=== PATIENT | male | born 1955 | race Caucasian/White ===

== ENCOUNTER 2017-05-27 11:48 | Day surgery (SDC) | payer OTHER ==
[~2017-05-27] VITALS: Ht 170.2 cm; Wt 87.3 kg
[~2017-05-27 11:48] MED LIST: BUPR-86 PO; CEPH500C3 PO; METO25 PO; PROS5TAB2 PO; TAMS0.4C67 PO
[2017-05-27] MEDS ORDERED: DEXAMETHASONE SOD PHOS 4 MG/ML VIAL IV ONE (12:00)
[2017-05-27] MEDS ORDERED: ROCURONIUM INJ 50 MG/5 ML SYRINGE IV PUSH ONE (12:00)
[2017-05-27] MEDS ORDERED: ONDANSETRON HCL 4 MG/2 ML VIAL IV PUSH ONE (12:00)
[2017-05-27] MEDS ORDERED: LIDOCAINE HCL 1% PF 5 ML AMPULE OTHER ONE (12:00)
[2017-05-27] MEDS ORDERED: PROPOFOL 200 MG/20 ML AMP IV ONE (12:00)
[2017-05-27] MEDS ORDERED: ePHEDrine/NS 25 MG/5 ML SYR IV ONE (12:00)
[2017-05-27] MEDS ORDERED: FLEC1TAB8 PO (13:16)
[2017-05-27] MEDS ORDERED: ASPI81CH37 CHEW (13:16)
[2017-05-27] MEDS ORDERED: ATOR20TA15 PO (13:16)
[2017-05-27] MEDS ORDERED: APIX5TAB PO (13:16)
[2017-05-27 13:17] VITALS: BP 126/75; PULSE 82; RESP 18; TEMP 98.3; O2SAT 96
[2017-05-27 13:19] LABS: AUTOMATED NEUTROPHIL # 4.7 TH/MM3 (1.8-7.7); BASOPHIL % 0.3 % (0.0-2.0); EOSINOPHIL # 0.1 TH/MM3 (0-0.4); EOSINOPHIL % 1.6 % (0.0-4.0); HEMO FLAGS DIFF FINAL; LYMPH % 35.1 % (9.0-44.0); LYMPHOCYTE # 2.9 TH/MM3 (1.0-4.8); MEAN CELL VOLUME 91.2 FL (80.0-100.0); MEAN CORPUSCULAR HEMOGLOBIN 30.4 PG (27.0-34.0); MEAN CORPUSCULAR HGB CONC 33.4 % (32.0-36.0); MONO % 6.3 % (0.0-8.0); NEUT % 56.7 % (16.0-70.0); PLATELET COUNT 148 TH/MM3 (150-450); RED BLOOD COUNT 4.93 MIL/MM3 (4.50-5.90); RED CELL DISTRIBUTION WIDTH 13.7 % (11.6-17.2); WHITE BLOOD COUNT 8.2 TH/MM3 (4.0-11.0)
[2017-05-27 13:27] LABS: APTT (PATIENT) 26.1 SEC (24.3-30.1); PROTHROMBIN TIME - PATIENT 10.5 SEC (9.8-11.6)
[2017-05-27 13:39] LABS: BICARBONATE 29.2 MEQ/L (21.0-32.0); POTASSIUM 3.8 MEQ/L (3.5-5.1)
[2017-05-27] MEDS ORDERED: LACTATED RINGER'S 1000 ML IV PRN (14:00)
[2017-05-27] MEDS ORDERED: METOPROLOL TARTRATE 25 MG TAB PO PRN (14:00)
[2017-05-27] MEDS ORDERED: POVIDONE IODINE 5% (ANTISEPSIS KIT) 4 APPLICATIONS EACH NARE PRN (14:00)
[2017-05-27] MEDS ORDERED: SODIUM CHLORID 0.9% 500 ML INJ 500 ML IV SCH (14:00)
[2017-05-27] MEDS ORDERED: LORazepam 1 MG TAB SL SCH (14:00)
[2017-05-27] MEDS ORDERED: SODIUM CHLORID 0.9% 500 ML IV PRN (14:00)
[2017-05-27] MEDS ORDERED: CHLORHEXIDINE GLUCONATE 2 % 1 PACK (2 CLOTHS) TOPICAL PRN (14:00)
[2017-05-27] MEDS ORDERED: INSULIN HUMAN REGULAR 1,000 UNITS/10 ML VIAL SQ PRN (14:00)
[2017-05-27] MEDS ORDERED: HEPARIN-NS/PF INJ 1,500 ML ONE (14:43)
[2017-05-27] MEDS ORDERED: LEVOFLOXACIN 500 MG PREMIX INJ 100 ML IV ONE (14:43)
[2017-05-27] MEDS ORDERED: HEPARIN SODIUM - IV 10,000 UNITS/10 ML VIAL ONE (15:04)
[2017-05-27] MEDS ORDERED: PROTAMINE SULFATE 50 MG/5 ML VIAL ONE (15:04)
[2017-05-27] MEDS ORDERED: ISOPROTERENOL HCL 1 MG/5 ML AMP ONE (15:04)
[2017-05-27] MEDS ORDERED: HEPARIN-D5W 25,000 U/250 ML 250 ML ONE (15:04)
--- NOTE | 2017-05-27 16:02 | EKG ---
Date Performed: 05/27/2017 Time Performed: 13:30:34 PTAGE: 61 years EKG: Sinus bradycardia with sinus arrhythmia. Non-specific ST/T wave changes Baseline artifact PREVIOUS TRACING : 05/15/2015 15.23 Compared to prior tracing no significant change DOCTOR: Trevon Porras Interpretating Date/Time 05/27/2017 16:02:36
[2017-05-27] MEDS ORDERED: FUROSEMIDE 40 MG/4 ML VIAL ONE (17:11)
[2017-05-27] MEDS ORDERED: BACITRACIN OINT 0.9 GM PKT TOP ONE (17:15)
[2017-05-27] MEDS ORDERED: ONDANSETRON HCL 4 MG/2 ML VIAL IV PUSH PRN (17:15)
[2017-05-27] MEDS ORDERED: SODIUM CHLOR 0.9% 250 ML INJ 250 ML IV PRN (17:15)
[2017-05-27] MEDS ORDERED: oxyCODONE/ACETAMINOPHEN 5 MG/325 MG TAB PO PRN ×2 (17:15)
[2017-05-27] MEDS ORDERED: LORazepam 2 MG/ML VIAL IV PUSH PRN (17:15)
[2017-05-27] MEDS ORDERED: ATROPINE SULFATE 1 MG/ML VIAL IV PUSH PRN (17:15)
[2017-05-27] MEDS ORDERED: LIDOCAINE HCL 1% 50 ML VIAL INFIL PRN (17:15)
[2017-05-27] MEDS ORDERED: METOCLOPRAMIDE HCL 10 MG/2 ML VIAL IV PUSH PRN (17:15)
--- NOTE | 2017-05-27 17:23 | PD.CARD ---
Atrial Fibrillation Ablation PROCEDURE DATE: May 27, 2017 PROCEDURES PERFORMED: 1. Electrophysiology study on Isuprel infusion 2. CS cannulation 3. 3-D mapping 4. Transseptal approach 5. Right and left heart catheterization 6. Intracardiac echo 7. Radiofrequency ablation of atrial fibrillation 8. Pulmonary vein isolation 9. Posterior wall ablation 10. Mitral line creation 11. Anterior wall ablation INDICATIONS FOR THE PROCEDURE Mr. Cancino is a 61-year-old male with atrial fibrillation, symptomatic, on anticoagulation, referred for electrophysiology study and ablation. The risks, the nature and the benefits of the procedure were clearly stated to him. The risks include pneumothorax, cardiac perforation, stroke, need for open heart surgery and even . The patient understood and agreed to proceed. DESCRIPTION OF THE PROCEDURE IN DETAIL As written informed consent was obtained prior to esophageal echocardiogram, the patient was kept on the table where he was prepped and draped in the usual sterile fashion. Conscious sedation was initiated and maintained throughout the procedure by the anesthesiologist. Once sedation was verified, the right and left inguinal areas were anesthetized with 2% Xylocaine. Using modified Seldinger technique, the left femoral vein was cannulated on three occasions, three guidewires were advanced. Over the wire a 6, 7 and a 10-Montserratian Hemaquet were advanced. Then the left femoral artery was cannulated on one occasion, one guidewire was advanced. Over the wire a 4-Montserratian Hemaquet was advanced. Then the right femoral vein was cannulated on one occasion, one guidewire was advanced. Over the wire a 8-Montserratian Hemaquet was advanced. Then under fluoroscopic guidance through the 6 and 7-Montserratian Hemaquet, two 5-Montserratian Nicolas curved quadripolar electrophysiology catheters were advanced and placed around the His as well as coronary sinus. Basic interval was measured. The patient was in sinus. Through the 10-Montserratian Hemaquet, a Cordis Blackwood AcuNav intracardiac echo catheter was advanced and placed at the right atrium. Multiple view was obtained. There was no pericardial effusion, pulmonary vein was seen, atrial septal was visualized. Then the 8-Montserratian Hemaquet in the right femoral vein was exchanged for Agilis transseptal sheath that was placed all the way to the superior vena cava. Through the sheath a Paola needle was advanced, then the sheath, the dilator and the needle were progressed until foci engaged. Once engaged, the needle was advanced. RF was delivered for 2 seconds. I was able to cross into the left atrium. Once the needle crossed, the dilator was advanced. Once the dilator crossed, the sheath was advanced. Once the sheath crossed, the dilator and the needle were removed. At this point I did flood the system and fluid movement was seen in the left atrium the indicates the sheath is in good position. The patient already received 10,000 units of heparin. The goal is to keep an ACT around 350 during ablation. Then through the sheath a [place]. [place]ce 20 pulse circumferential catheter was advanced. Using [employer] endocardial solution mapping system, a two-dimensional configuration of the left atrium was obtained. Points were taken at the left superior and inferior veins, right superior and inferior veins, mitral valve, and appendages. Then through the sheath a [place]. Jayce TactiCath 65cm 3.5mm irrigated tipped mapping and radiofrequency ablation catheter was advanced. Esophageal probe was placed temperature monitoring during ablation. When it increased to 0.5 degrees Celsius above baseline, I moved to a different area of the atrium. First I did isolate the left superior and inferior vein. I did make a [place]ter [place] around the veins. Posterior was ablated. Then a mitral line was created. Then the right superior and inferior veins were isolated. A potter valley was made around both veins. I did remap the atrium. At that point I did advance the circumferential catheter again into the vein. There was no signal into the vein , pacing from the vein showed no conduction to the atrium. Isuprel infusion was initiated at 20 mcg for over 10 minutes. No tachyarrhythmia was induced, post Isuprel no tachyarrhythmia was induced. At that point the procedure was complete. All catheters were removed, atrial septal sheath was exchanged for 9- Montserratian Hemaquet, intracardiac echo showed no pericardial effusion. There is still good flow in the pulmonary vein. The patient is going to be transferred to the recovery room. No incident report. The patient tolerated the procedure. Blood loss was minimal. FINDINGS 1. Electrocardiogram: At baseline the patient was in sinus rhythm. Post procedure electrocardiogram was unchanged. 2. Basic interval: Base cycle length was around 840. AH at 70 and HV at 60 milliseconds. 3. Tachyarrhythmia: Atrial fibrillation was mapped and ablated. The ablation was successful. CONCLUSION Successful electrophysiology study, mapping, radiofrequency ablation of atrial fibrillation, pulmonary vein isolation, posterior ablation, mitral line creation. COMMENTS AND RECOMMENDATIONS The patient is going to be transferred to the telemetry unit. Will be observed and when stable can be discharged home. Nelson Ellis MD May 27, 2017 17:23
--- NOTE | 2017-05-27 17:27 | CATHPROC ---
[facility] HIS Report Study Information Study Number Admission Scheduled Start Study Start [id number] May 27 2017 11:48AM 05/27/2017 May 27 2017 2:13PM Hanna Service Electrophysiology Study Admit Source Facility Department Other [facility] Worker Physician and Clinical Staff Initial Nelson Joy Web Press Jogger Trudy Gilman,JAVA DESIGNER Web Press Jogger Alberto Moody,RT(R) Other Anesthesia, ELECTRIC METER TECHNICIAN Recorder Rylie Clark,RN Recorder Kendy Maynard RN Scrub Trudy Gilman,JOCELYN Scrub Sabiha Delgado,STREETS AND BUILDINGS DECORATOR TECH2 Procedures Performed Procedure Location (Site) Vessel Name Ablation Procedure ICE CATHETER INSERT RA Atruim RF Ablation LT. ATRIUM LT. [facility] Equipment Time [facility] Former Description Size Mfg Part Number Used/Scraped NEEDLE, TRANSSEPTAL NRG 98 14:30 [facility] [id number] Used C1 [employer]/ EP 14:30 KIT, TRANSDUCER / AFIB [id number] Used PACER [id number] CATHETER, TACTICATH ABLAT BUNDLE 14:30 BUNDLE-[facility]EL Used 65 BUNDLE *[id number] BUNDLE [id number] CATHETER, FR7 OPTIMA SPIRAL 14:30 BUNDLE-[employer] IS[employer]EL FR7 *[id number] Used BUNDLE BUNDLE [id number] 14:30 BUNDLE-[employer]EL CATHETER, JSN, QUAD BUNDLE FR 5 *[id number] Used BUNDLE [id number] 14:30 BUNDLE-[employer] CATHETER, JSN, QUAD BUNDLE FR 5 *[id number] Used BUNDLE [id number] SET, COOL POINT TUBING 14:30 BUNDLE-[employer] ISABEL *[id number]- Used BUNDLE BUNDLE SHEATH, FR8.5 STEERABLE SM 14:30 BUNDLE-[employer]. [employer] ISABEL 71CM [id number] Used 71CM BUNDLE COVER, TRANSDUCER CABLE 14:30 [employer] 612-113 Used ACUNAV 14:30 CORDIS/PACER SHEATH, FR10 BENEDICTO 11CM FR 10 [id number] Used 14:30 CORDIS/PACER SHEATH, FR9 BENEDICTO 11CM FR 9 [id number] Used [id number] 14:30 [employer] INDUSTRIES PACK, CCL CUSTOM * Used *[id number] 14:30 [employer] PACER [place]ILL[place], LIMB * 5010 *[id number] Used [id number] 14:30 [employer] MEDICAL SHEATH, FR4.5 PRELUDE 11CM FR 4.5 Used [id number] 14:30 NAMIC TUBING, HIGH PRESSURE 48" 48" Used *[id number] 14:30 NAMIC TUBING, HIGH PRESSURE 48" 48" Used *[id number] 14:30 [employer] MEDICAL BLANKET,WARM AIR CCL * Used *[id number] 14:30 [facility] MEDICAL ELECTRODE KIT, GERMAN X SURFACE * [id number] Used [id number] 14:30 [facility] MEDICAL SHEATH, EPS, FR6 FAST CATH FR 6 Used *[id number] 14:30 [employer] [employer] MEDICAL SHEATH, EPS, FR7 FAST CATH FR 7 [id number] Used [id number] 14:30 [facility] MEDICAL SHEATH, EPS, FR8 FAST CATH FR 8 Used *[id number] CATHETER, ACUNAV FR10 ICE [id number] 15:53 OSMAR FR 10 Used (OSMAR) *[id number] [facility] PAD, ELECTROSURGICAL 14:30 * [id number] *[id number] Used SURGICAL GROUNDING (BLUE) History: Allergies Allergy Reaction No Known Allergies History: Risk Factors Hypertension Yes Labs Hgb (g/dl) Hct (%) RBC (MIL/MM3) WBC (l/cumm) Platelets (thousands) 11.60-17.00 35.00-51.00 4.00-5.90 4.00-11.00 150.00-450.00 15.0 45 4.9 8.2 148 Glucose (mg/dl) BUN (mg/dl) Creatinine (mg/dl) BUN:Creatinine (1:x) 74.00-106.00 7.00-18.00 0.50-1.30 10.00-20.00 92 17 0.6 28.3 Na (meq/l) K (meq/l) 136.00-145.00 3.50-5.10 140 3.8 INR (PTT:PT) 0.90-1.10 1 Medication Medication Total Dose (Bolus/Oral) Medication Total Dosage/Unit 1% XYLOCAINE 40 mL HEPARIN 98903 units LASIX 40 mg PROTAMINE 40 mg Medications (Bolus/Oral) Medication Time Given Dosage/Unit Administered By Reason 1% XYLOCAINE 05/27/2017 3:47:48 PM 20 mL RhondaNelson pal 20 mL 1% XYLOCAINE given in lab by Nelson Ellis in Left Groin via Subcutaneous. Ordered by Raj Ellis 1% XYLOCAINE 05/27/2017 3:50:25 PM 20 mL Nelson Ellis 20 mL 1% XYLOCAINE given in lab by Nelson Ellis in Right Groin via Subcutaneous. Ordered by Jasiel Ellis. HEPARIN 05/27/2017 4:01:43 PM 12965 units Nelson Ellis 61668 units HEPARIN given in lab by Nelson Ellis via Peripheral IV. Ordered by Nelson Ellis. HEPARIN 05/27/2017 4:18:06 PM 2000 units Nelson Ellis As per physicians ve rbal order 2000 units HEPARIN given in lab by Nelson Ellis via Peripheral IV. Ordered by Nelson Ellis. Reason: As per physicians verbal order. HEPARIN 05/27/2017 4:33:41 PM 2000 units Nelson Ellis As per physicians ve rbal order 2000 units HEPARIN given in lab by Nelson Ellis via Peripheral IV. Ordered by Nelson Ellis. Reason: As per physicians verbal order. LASIX 05/27/2017 5:10:37 PM 40 mg Anesthesia, ELECTRIC METER TECHNICIAN As per physicians verba l order 40 mg LASIX given in lab by Anesthesia, ELECTRIC METER TECHNICIAN via Peripheral IV. Ordered by Nelson Ellis. Reason: As per physicians verbal order. PROTAMINE 05/27/2017 5:11:09 PM 40 mg Anesthesia, ELECTRIC METER TECHNICIAN As per physicians good bal order 40 mg PROTAMINE given in lab by Anesthesia, ELECTRIC METER TECHNICIAN via Peripheral IV. Ordered by Nelson Ellis. Reason: As per physicians verbal order. Medication (Drip) Medication Time Given Dosage/Unit Concentration/Unit Diluent (ml) Solution HEPARIN DRIP 05/27/2017 4:18:23 PM 1000 units/hr 58665 units 250 D5W 1000 units/hr HEPARIN DRIP given in lab by Nelson Ellis via Peripheral IV. Pump/Drip Flow = 10 ml/hr using D5[place] [address] units in 250 ml. Ordered by Nelson Ellis. Reason: As per physicians verbal order. ISUPREL 05/27/2017 4:56:31 PM 20 mcg/min 1 mg 250 NaCl .9 20 mcg/min ISUPREL given in lab by Nelson Ellis via Peripheral IV. Pump/Drip Flow = 300 ml/hr using NaCl .9 with a concentration of 1 mg in 250 ml. Ordered by Nelson Ellis. Reason: As per physicians verbal order. LEVAQUIN 05/27/2017 3:15:24 PM 100 mL/hr 500 100 NaCl .9 100 mL/hr LEVAQUIN given in lab by TAI Wheeler via Peripheral IV. Pump/Drip Flow = 0 ml/hr using NaCl .9 with a concentration of 500 in 100 ml. Ordered by Nelson Ellis. Reason: As per physicians verbal order. Initial Case Assessment Cardiovascular HR Rhythm NIBP Chest Pain 63 sr 165/86 0 Edema Present Skin color Skin None Normal Warm Dry Circulatory - Right Pulses Posterior Tibial 2 Scale (0,1,2,3,4,d) Circulatory - Left Pulses Posterior Tibial 2 Scale (0,1,2,3,4,d) Circulatory - Lower Extremities Color Lower Right Color Lower Left Normal Normal Neurological State Oriented to time-place- Alert Moves all extremities person Respiration - General Respiration Rate SpO2 (%) (B/min) 20 97 Final Case Assessment Cardiovascular HR Rhythm NIBP Chest Pain 83 sr 121/55 0 Edema Present Skin color Skin None Normal Warm Dry Circulatory - Right Pulses Posterior Tibial 2 Scale (0,1,2,3,4,d) Circulatory - Left Pulses Posterior Tibial 2 Scale (0,1,2,3,4,d) Circulatory - Lower Extremities Color Lower Right Color Lower Left Normal Normal Neurological State Oriented to time-place- Alert Moves all extremities person Respiration - General Respiration Rate SpO2 (%) O2 (lpm) (B/min) 16 94 50 Respiration - Ventilator Type Intubation Type ET(oral) Chronological Log Time Study Chronological Log 14:45:04 Patient arrived via Bed. 14:45:05 Patient Name, D.O.B, / Armband Verified By R.N. 14:45:06 Consent signed by the physician and the patient and verified by the Refuge Worker staff. 14:45:07 Pre-op and post- op instructions given; patient acknowledges understanding of instructions . 14:45:08 Verbal Stimulation=2 Physical Stimulation=2 Airway=2 Respiration=2 TOTAL=8. (0=absent, 1=l imited, 2=present) 14:45:17 Patient has been NPO for More than 6Hrs. 14:45:18 Skin Breakdown- none per pt 14:45:24 Patient Warmer Placed on the Table. 14:45:25 Disposable Defibrillator Pads Placed On Patient. 14:45:26 Gamaliel Prominences Protected 14:45:28 A # 20 IV was noted in the Antecubital (left). Grade = 0 0.9ns kvo 14:45:29 A # 20 IV was noted in the Antecubital (right). Grade = 0 0.9ns kvo 14:45:30 History and physical on the chart or being dictated. 15:00:00 Anesthesia at bedside. Assumes care of patient. Darci Assessment: Initial Case, HR=63 BPM, Rhythm=sr, RHTM=777/86 mmhg, Chest Pain=0, Edema=None, Col or=Normal, Skin = Warm, Dry Right Pulses: Post Tib=2 Left Pulses: Post Tib=2 15:01:35 Lower Right Extremities: Color=Normal Lower Left Extremities: Color=Normal Neurological: State=Alert, Ox3, BELLO Respiration: Resp=20 B/min, SpO2=97 % 15:01:43 Reference ECG taken 15:02:33 Table restraints applied according to hospital policy 100 mL/hr LEVAQUIN given in lab by Anesthesia, ELECTRIC METER TECHNICIAN via Peripheral IV. Pump/Drip Flow = 0 ml/hr using NaCl .9 with 15:15:24 a concentration of 500 in 100 ml. Ordered by Nelson Ellis. Reason: As per physicians verbal or gerald. 15:15:39 Anesthesia present for intubation. 14 Fr amaya inserted w/o difficulty. clear yellow urine obtained. 15:18:00 MD paged 15:18:40 Bilateral groins prepped with 2% chlorhexidine, and draped after a 3 minute waiting time. 15:19:00 MD responded 15:43:56 MD arrived. Time Out. Correct patient, procedure, procedure equipment, site and side verified with physicia n present. Time 15:45:00 concurred by MD, individual staff and ELECTRIC METER TECHNICIAN. Time Out #2 - Consents verified, patient in correct position, all results are labled and displa yed, safety precautions 15:45:47 taken, antibiotics administered. Time out concurred by MD, individual staff and ELECTRIC METER TECHNICIAN in procedu re 15:45:48 Case Start 15:46:39 javon in progress javon complete 15:: 15:47:48 20 mL 1% XYLOCAINE given in lab by Nelson Ellis in Left Groin via Subcutaneous. Ordered by Nelson Ellis. 15:48:20 Vascular access was obtained in the Fem Vein (left). 15:48:22 Vascular access was obtained in the Fem Vein (left). 15:48:23 Vascular access was obtained in the Fem Vein (left). 15:48:30 Vascular access was obtained in the Fem Art (left). A SHEATH, FR4.5 PRELUDE 11CM FR 4.5 was advanced into the Fem Art (left) using the Modified Danika ruth technique. 15:48:53 0.9ns pressure bag connected. 15:49:33 A SHEATH, EPS, FR6 FAST CATH FR 6 was advanced into the Fem Vein (left) using the Modified Seldinger technique. 15:49:47 A SHEATH, EPS, FR7 FAST CATH FR 7 was advanced into the Fem Vein (left) using the Modified Seldinger technique. 15:50:03 A SHEATH, FR10 BENEDICTO 11CM FR 10 was advanced into the Fem Vein (left) using the Modified S eldinger technique. 15:50:25 20 mL 1% XYLOCAINE given in lab by Nelson Ellis in Right Groin via Subcutaneous. Ordered b y Nelson Ellis. 15:50:35 Vascular access was obtained in the Fem Vein (right). 15:50:41 A SHEATH, EPS, FR8 FAST CATH FR 8 was advanced into the Fem Vein (right) using the Modified Seldinger technique. A CATHETER, JSN, QUAD BUNDLE FR 5 was advanced vis Fem Vein (left) and placed in the CS. Placem ent was visually 15:51:25 confirmed under fluoroscopy. A CATHETER, JSN, QUAD BUNDLE FR 5 was advanced vis Fem Vein (left) and placed in the HIS. Place ment was 15:51:43 visually confirmed under fluoroscopy. 15:52:25 CATHETER, ACUNAV FR10 ICE (OSMAR) FR 10 Was Postioned. 15:53:17 baylis in A SHEATH, FR8.5 STEERABLE SM 71CM BUNDLE 71CM was exchanged in the Fem Vein (right). This was n ecessary in 15:59:48 order for catheter support. 16:01:00 A eps was advanced to the right atrium and passed through the septal wall to the left atriu m. 16:01:15 baylis out 16:01:43 67791 units HEPARIN given in lab by Nelson Ellis via Peripheral IV. Ordered by Jean Pierre Ellis A CATHETER, FR7 OPTIMA SPIRAL BUNDLE FR7 was advanced vis Fem Vein (right) and placed in the LA . Placement 16:03:02 was visually confirmed under fluoroscopy. 16:04:03 mapping in progress 16:06:08 Activated Clotting Time Drawn 16:10:11 Mapping complete. Catheter was removed A CATHETER, TACTICATH ABLAT 65 BUNDLE was advanced vis Fem Vein (right) and placed in the LA. P lacement was 16:11:33 visually confirmed under fluoroscopy. 16:12:56 ACT (Normal Range 90-180) = 322 2000 units HEPARIN given in lab by Nelson Ellis via Peripheral IV. Ordered by Nelson Ellis. R fatmata: As per 16:18:06 physicians verbal order. 1000 units/hr HEPARIN DRIP given in lab by Nelson Ellis via Peripheral IV. Pump/Drip Flow = 10 ml/hr using D5W 16:18:23 [place] [address] units in 250 ml. Ordered by Nelson Ellis. Reason: As per physici ans verbal order. 16:19:00 RF Ablation of the LT. ATRIUM with a CATHETER, TACTICATH ABLAT 65 BUNDLE. 16:25:44 Activated Clotting Time Drawn 16:32:54 ACT (Normal Range 90-180) = 326 2000 units HEPARIN given in lab by Nelson Ellis via Peripheral IV. Ordered by Nelson Ellis. R fatmata: As per 16:33:41 physicians verbal order. 16:41:43 Activated Clotting Time Drawn 16:47:52 ACT (Normal Range 90-180) = 380 16:49:11 ablation in progress 16:54:35 ablation complete. Catheter was removed 20 mcg/min ISUPREL given in lab by Nelson Ellis via Peripheral IV. Pump/Drip Flow = 300 ml/hr using NaCl .9 with a 16:56:31 concentration of 1 mg in 250 ml. Ordered by Nelson Ellis. Reason: As per physicians verbal ord er. 17:06:31 Isuprel off 17:08:49 Catheter(s) removed without difficulty 17:08:52 Sheath(s) left in place, sutured, 0.9ns kvo connected and will be removed in Holding Area 17:09:59 PACU called. Spoke to Alejandro 17:10:12 Bedside Report will be given. 17:10:31 Heparin off. 40 mg LASIX given in lab by Anesthesia, ELECTRIC METER TECHNICIAN via Peripheral IV. Ordered by Nelson Ellis. Reaso n: As per physicians 17:10:37 verbal order. 40 mg PROTAMINE given in lab by Anesthesia, ELECTRIC METER TECHNICIAN via Peripheral IV. Ordered by Nelson Ellis. R fatmata: As per 17:11:09 physicians verbal order. 17:13:45 Ablation procedure performed: AFIB. 17:13:52 EP Procedure was performed. Assessment: Final Case, HR=83 BPM, Rhythm=sr, ORTI=700/55 mmhg, Chest Pain=0, Edema=None, Color =Normal, Skin = Warm, Dry Right Pulses: Post Tib=2 Left Pulses: Post Tib=2 17:15:03 Lower Right Extremities: Color=Normal Lower Left Extremities: Color=Normal Neurological: State=Alert, Ox3, BELLO Respiration: Resp=16 B/min, SpO2=94 %, O2=50 lpm, Type=ET(Oral) 17:15:47 Case End 17:15:48 No case complications noted. 17:15:49 Cine recording checked. 17:15:55 Defibrillator and ground pads removed. Skin intact. 17:16:10 Sterile dressings applied to sites 17:20:43 Activated Clotting Time Drawn 17:23:46 ACT (Normal Range 90-180) = 172 17:35:19 Patient moved to [facility] End Study - Contrast Media Used In Study Contrast Total Opened (mL) Total Used (mL) Total Wasted (mL) Unspecified 0 0 0 End Study - Maximum Contrast Load Max Contrast Load (mL) 725.8 End Study - Radiation Exposure Fluoro Time (minutes) 0.9 End Study - Patient Disposition Complications Transferred To Interventional Outcome No Telemetry Bed successful
[2017-05-27] MEDS ORDERED: *PROMETHAZINE 25 MG/ML VIAL PERIprocedural use ONLY ONE (17:41)
[2017-05-27] MEDS ORDERED: DO NOT ADM ANY ANTICOAGULANT DRUGS PRN (17:45)
[2017-05-27] MEDS ORDERED: ATORVASTATIN 20 MG TAB PO SCH (21:00)
[2017-05-27 21:50] VITALS: BP 124/74; PULSE 71; RESP 16; TEMP 97; O2SAT 95
[2017-05-27 22:00] VITALS: PULSE 70
[2017-05-27] MEDS: APIXABAN 5 MG TABLET PO SCH (22:21)
[2017-05-27 23:00] VITALS: BP 114/66; PULSE 68; PULSE 69; RESP 16; TEMP 97.2; O2SAT 97
[2017-05-28] VITALS (14 sets, daily range): BP systolic 115–124; BP diastolic 71–73; PULSE 57–68; RESP 16–18; TEMP 97.1–98.4; O2SAT 93–95
[2017-05-28 06:29] LABS: APTT (PATIENT) 25.9 SEC (24.3-30.1)
[2017-05-28] MEDS: APIXABAN 5 MG TABLET PO SCH (07:48)
--- NOTE | 2017-05-28 08:18 | PD.CARD.PN ---
Subjective Subjective Remarks Feels okay. Objective Medications Current Medications Medications (Trade) Dose Ordered Sig/Shayy Route Start Time Stop Time Status Last Admin (Percocet 5-325 Mg) 1 tab Q4H PRN PO 05/27/17 17:15 (Percocet 5-325 Mg) 2 tab Q4H PRN PO 05/27/17 17:15 (Ativan Inj) 0.5 mg UNSCH PRN IV PUSH 05/27/17 17:15 05/28/17 17:14 (Atropine Inj) 0.5 mg UNSCH PRN IV PUSH 05/27/17 17:15 Sodium Chloride 250 ml @ 500 mls/hr ONCE PRN IV 05/27/17 17:15 05/28/17 17:14 (Reglan Inj) 10 mg Q4H PRN IV PUSH 05/27/17 17:15 (Zofran Inj) 4 mg Q4H PRN IV PUSH 05/27/17 17:15 (Xylocaine 1% Inj (50 ml)) 10 ml UNSCH PRN INFIL 05/27/17 17:15 05/28/17 17:14 (Eliquis) 5 mg BID PO 05/27/17 21:00 05/28/17 07:48 (Lipitor) 20 mg HS PO 05/27/17 21:00 05/27/17 22:21 Miscellaneous Information ALL NURSING DEPARTME... UNSCH PRN .XX 05/27/17 17:45 05/28/17 17:44 Vital Signs / I&O Vital Signs Date Time Temp Pulse Resp B/P (MAP) Pulse Ox O2 Delivery O2 Flow Rate FiO2 05/28/17 07:30 98.1 58 16 120/73 (89) 93 05/28/17 07:30 58 05/28/17 07:00 60 05/28/17 06:00 57 05/28/17 05:00 57 05/28/17 04:00 59 05/28/17 03:00 60 05/28/17 03:00 97.1 62 16 115/71 (86) 95 05/28/17 02:00 60 05/28/17 01:00 62 05/28/17 00:00 66 05/27/17 23:00 97.2 69 16 114/66 (82) 97 05/27/17 23:00 68 05/27/17 22:00 70 05/27/17 21:50 97.0 71 16 124/74 (91) 95 05/27/17 21:35 70 14 95 Nasal Cannula 2 05/27/17 21:00 75 16 118/67 (84) 95 Nasal Cannula 2 05/27/17 20:00 97.5 80 16 121/76 (91) 94 Nasal Cannula 2 05/27/17 19:30 74 16 123/74 (90) 94 Nasal Cannula 2 05/27/17 19:00 75 16 125/77 (93) 93 Nasal Cannula 2 05/27/17 18:45 97.6 73 15 125/72 (89) 96 Nasal Cannula 3 05/27/17 18:30 71 15 123/70 (87) 95 Nasal Cannula 3 05/27/17 18:15 70 15 126/80 (95) 94 Nasal Cannula 3 05/27/17 18:00 69 15 122/72 (89) 94 Nasal Cannula 3 05/27/17 17:45 70 15 137/73 (94) 93 Nasal Cannula 3 05/27/17 17:40 98.0 70 15 131/78 (95) 92 Nasal Cannula 3 05/27/17 13:17 98.3 82 18 126/75 (92) 96 I/O 05/27/17 05/27/17 05/27/17 05/28/17 05/28/17 05/28/17 07:00 15:00 23:00 07:00 15:00 23:00 Intake Total 720 ml Output Total 2275 ml 600 ml 180 ml Balance -2275 ml 120 ml -180 ml Intake Oral 720 ml Output Urine Total 2275 ml 600 ml 180 ml # Voids 1 # Bowel Movements 0 Physical Exam GENERAL: Well-nourished, well-developed patient. SKIN: Warm and dry. Groin site soft with no bruising or bleeding. HEAD: Normocephalic. EYES: No scleral icterus. No injection or drainage. NECK: Supple, trachea midline. No JVD or lymphadenopathy. CARDIOVASCULAR: Regular rate and rhythm without murmurs, gallops, or rubs. RESPIRATORY: Breath sounds equal bilaterally. No accessory muscle use. GASTROINTESTINAL: Abdomen soft, non-tender, nondistended. EXTREMITIES: No cyanosis, or edema. NEUROLOGICAL: Awake, alert, and oriented x 3. Non-focal. Laboratory Laboratory Tests Test 05/27/17 12:48 05/28/17 05:56 White Blood Count 8.2 TH/MM3 Red Blood Count 4.93 MIL/MM3 Hemoglobin 15.0 GM/DL Hematocrit 45.0 % Mean Corpuscular Volume 91.2 FL Mean Corpuscular Hemoglobin 30.4 PG Mean Corpuscular Hemoglobin Concent 33.4 % Red Cell Distribution Width 13.7 % Platelet Count 148 TH/MM3 Mean Platelet Volume 9.0 FL Neutrophils (%) (Auto) 56.7 % Lymphocytes (%) (Auto) 35.1 % Monocytes (%) (Auto) 6.3 % Eosinophils (%) (Auto) 1.6 % Basophils (%) (Auto) 0.3 % Neutrophils # (Auto) 4.7 TH/MM3 Lymphocytes # (Auto) 2.9 TH/MM3 Monocytes # (Auto) 0.5 TH/MM3 Eosinophils # (Auto) 0.1 TH/MM3 Basophils # (Auto) 0.0 TH/MM3 CBC Comment DIFF FINAL Differential Comment Prothrombin Time 10.5 SEC 11.0 SEC Prothromb Time International Ratio 1.0 RATIO 1.0 RATIO Activated Partial Thromboplast Time 26.1 SEC 25.9 SEC Blood Urea Nitrogen 17 MG/DL Creatinine 0.60 MG/DL Random Glucose 92 MG/DL Calcium Level 9.2 MG/DL Sodium Level 140 MEQ/L Potassium Level 3.8 MEQ/L Chloride Level 106 MEQ/L Carbon Dioxide Level 29.2 MEQ/L Anion Gap 5 MEQ/L Estimat Glomerular Filtration Rate 138 ML/MIN Assessment and Plan Problem List: (1) Atrial fibrillation ICD Codes: I48.91 - Unspecified atrial fibrillation Plan: Normal sinus rhythm on telemetry status post ablation. (2) S/P ablation of atrial fibrillation ICD Codes: Z98.890 - Other specified postprocedural states; Z86.79 - Personal history of other diseases of the circulatory system Plan: Continue eliquis, discharge home, follow-up with Dr. Ellis in 3 weeks per my discussion with him. Elda Vitale May 28, 2017 08:18
--- NOTE | 2017-05-28 14:56 | EKG ---
Date Performed: 05/28/2017 Time Performed: 05:19:20 PTAGE: 61 years EKG: Sinus bradycardia rSr'(V1) - probable normal variant ST elevation in multiple leads - consi gerald pericarditis Borderline ECG PREVIOUS TRACING : 05/27/2017 18.09 Compared to prior tracing no significant change DOCTOR: Trevon Porras Interpretating Date/Time 05/28/2017 14:56:16
--- NOTE | 2017-05-28 23:48 | EKG ---
Date Performed: 05/27/2017 Time Performed: 18:09:39 PTAGE: 61 years EKG: Sinus rhythm INCOMPLETE RIGHT BUNDLE BRANCH BLOCK BORDERLINE ECG PREVIOUS TRACING : 05/27/2017 13.30 Compared to prior tracing no significant change DOCTOR: Trevon Porras Interpretating Date/Time 05/28/2017 23:46:54
== END 2017-05-28 12:00 | disposition home or self-care (01) ==
LOC: HCAT 11:48 → HDIC 11:48 → HCIN 21:46 → HCAT 05-28 12:00
PROVIDERS: ATTEND Internal Medicine Interventional Cardiology
DX: I48.91 Unspecified atrial fibrillation (principal); I11.9 Hypertensive heart disease without heart failure; I45.4 Nonspecific intraventricular block; I34.0 Nonrheumatic mitral (valve) insufficiency; I49.3 Ventricular premature depolarization; E78.5 Hyperlipidemia, unspecified; F17.200 Nicotine dependence, unspecified, uncomplicated; Z79.01 Long term (current) use of anticoagulants; Z01.818 Encounter for other preprocedural examination; Z01.810 Encounter for preprocedural cardiovascular examination
CPT/HCPCS: 80048; 85002; 85025; 85610; 85730; 86850; 86900; 86901; 93005; 93613; 93623; 93656; 93662; C1730; C1731; C1732; C1759; C1766; C2630; J1100; J1644; J1940; J1956; J2405; J2550; J2720; J3010

== ENCOUNTER 2017-05-28 22:20 | Inpatient (IN) | payer OTHER ==
[~2017-05-28] VITALS: Ht 175.3 cm; Wt 91.5 kg
[~2017-05-28 22:20] MED LIST changes: +APIX5TAB PO; +ATOR20TA15 PO; -BUPR-86 PO; -CEPH500C3 PO; -METO25 PO; -PROS5TAB2 PO; -TAMS0.4C67 PO
[2017-05-28 22:26] VITALS: BP 131/71; PULSE 80; RESP 20; TEMP 98.6; O2SAT 94
[2017-05-28 23:52] VITALS: BP 114/67; PULSE 63; RESP 20; O2SAT 97
[2017-05-29] VITALS (12 sets, daily range): BP systolic 101–117; BP diastolic 55–57; PULSE 64–66; RESP 16–22; TEMP 98.8–100.3; O2SAT 92–96
[2017-05-29] MEDS ORDERED: SODIUM CHLORIDE 0.9% FLUSH 10 ML FLUSH IVF PRN
--- NOTE | 2017-05-29 00:08 | PD ---
HPI Chief Complaint: Respiratory Symptoms Time Seen by Provider: 23:52 Travel History International Travel<30 days: No Contact w/Intl Traveler<30days: No Traveled to known affect area: No History of Present Illness HPI 61yo M with PMH of HLD and afib s/p ablation on 05/27/17 presents to the ED with c/o chest pain and sob that started after being discharged yesterday. Pt said chest pain is midsternal, worst with breathing and he is unable to lay down. He feels more sob when he lays down which is new. Chest pain is nonradiating. +Cough. Denies any fever, n/v, abdominal pain, focal weakness or numbness. PFSH Past Medical History Depression: Yes Cancer: No Cardiovascular Problems: Yes Diminished Hearing: No Endocrine: No Genitourinary: Yes (BPH) Hypertension: Yes Immune Disorder: No Psychiatric: Yes Reproductive: No Respiratory: No Immunizations Current: No Past Surgical History Abdominal Surgery: Yes (APPE) Appendectomy: Yes Genitourinary Surgery: Yes (URETERAL STENTS) Pacemaker: No Other Surgery: Yes Social History Alcohol Use: Yes Tobacco Use: Yes (1 PPD) Substance Use: No Allergies-Medications (Allergen,Severity, Reaction): Coded Allergies: No Known Allergies (Unverified , 05/28/17) Reported Meds & Prescriptions Reported Meds & Active Scripts Active Reported Eliquis (Apixaban) 5 Mg Tab 5 Mg PO BID Atorvastatin (Atorvastatin Calcium) 20 Mg Tab 20 Mg PO HS Review of Systems Except as stated in HPI: all other systems reviewed are Neg Physical Exam Narrative GENERAL: 61yo M in mild distress. SKIN: Focused skin assessment warm/dry. HEAD: Atraumatic. Normocephalic. NECK: Trachea midline. No JVD. CARDIOVASCULAR: Regular rate and rhythm. No murmur appreciated. RESPIRATORY: Bibasilar crackles. GASTROINTESTINAL: Abdomen soft, non-tender, nondistended. MUSCULOSKELETAL: No obvious deformities. No clubbing. No cyanosis. No edema. No calf tenderness. NEUROLOGICAL: Awake and alert. No obvious cranial nerve deficits. Motor grossly within normal limits. Normal speech. PSYCHIATRIC: Appropriate mood and affect; insight and judgment normal. Data Data Last Documented VS Vital Signs Date Time Temp Pulse Resp B/P (MAP) Pulse Ox O2 Delivery O2 Flow Rate FiO2 05/29/17 00:55 96 Room Air 05/29/17 00:55 05/28/17 23:52 63 20 05/28/17 22:26 98.6 Orders Orders Electrocardiogram (05/28/17 ) Complete Blood Count With Diff (05/28/17 23:59) Basic Metabolic Panel (Bmp) (05/28/17 23:59) B-Type Natriuretic Peptide (05/28/17 23:59) Act Partial Throm Time (Ptt) (05/28/17 23:59) Prothrombin Time / Inr (Pt) (05/28/17 23:59) Magnesium (Mg) (05/28/17 23:59) Troponin I (05/28/17 23:59) Iv Access Insert/Monitor (05/28/17 23:59) Ecg Monitoring (05/28/17 23:59) Oximetry (05/28/17 23:59) Oxygen Administration (05/28/17 23:59) Chest, Single Ap (05/28/17 23:59) Sodium Chloride 0.9% Flush (Ns Flush) (05/29/17 00:00) Ct Pulmonary Angiogram (05/29/17 ) Blood Culture (05/29/17 01:33) Lactic Acid Sepsis Protocol (05/29/17 01:33) Ceftriaxone Inj (Rocephin Inj) (05/29/17 01:45) Azithromycin (Zithromax) (05/29/17 01:45) Apixaban (Eliquis) (05/29/17 09:00) Atorvastatin (Lipitor) (05/29/17 21:00) Ceftriaxone Inj (Rocephin Inj) (05/30/17 02:00) Complete Blood Count With Diff (05/29/17 06:00) Basic Metabolic Panel (Bmp) (05/29/17 06:00) Troponin I (05/30/17 06:00) Azithromycin Inj (Zithromax Inj) (05/30/17 02:00) Admit To Inpatient (05/29/17 ) Vital Signs (Adult) Q4H (05/29/17 01:58) Activity Oob With Assistance (05/29/17 01:58) [employer] Ax Consultant / Telemetry .CONTINUOUS (05/29/17 01:58) Diet Heart Healthy (05/29/17 Breakfast) Sodium Chloride 0.9% Flush (Ns Flush) (05/29/17 02:00) Sodium Chloride 0.9% Flush (Ns Flush) (05/29/17 09:00) Ondansetron Inj (Zofran Inj) (05/29/17 02:00) Resp Oxygen Darryl C Titrat 1-4 L (05/29/17 ) Scd Bilateral/Knee High AMBER.BID (05/29/17 01:58) Naloxone Inj (Narcan Inj) (05/29/17 02:00) Docusate Sodium-Senna (Gayle-Colace) (05/29/17 09:00) Magnesium Hydroxide Liq (Milk Of Magnesi (05/29/17 02:00) Sennosides (Senokot) (05/29/17 02:00) Bisacodyl Supp (Dulcolax Supp) (05/29/17 02:00) Lactulose Liq (Lactulose Liq) (05/29/17 02:00) Inpatient Certification (05/29/17 ) Iohexol 350 Inj (Omnipaque 350 Inj) (05/29/17 02:16) Admit Order (Ed Use Only) (05/29/17 02:35) Labs Laboratory Tests Test 05/29/17 00:25 05/29/17 02:00 White Blood Count 19.1 TH/MM3 Red Blood Count 4.94 MIL/MM3 Hemoglobin 15.0 GM/DL Hematocrit 44.5 % Mean Corpuscular Volume 90.0 FL Mean Corpuscular Hemoglobin 30.3 PG Mean Corpuscular Hemoglobin Concent 33.7 % Red Cell Distribution Width 14.0 % Platelet Count 172 TH/MM3 Mean Platelet Volume 9.4 FL Neutrophils (%) (Auto) 74.6 % Lymphocytes (%) (Auto) 18.9 % Monocytes (%) (Auto) 6.0 % Eosinophils (%) (Auto) 0.2 % Basophils (%) (Auto) 0.3 % Neutrophils # (Auto) 14.2 TH/MM3 Lymphocytes # (Auto) 3.6 TH/MM3 Monocytes # (Auto) 1.2 TH/MM3 Eosinophils # (Auto) 0.0 TH/MM3 Basophils # (Auto) 0.1 TH/MM3 CBC Comment AUTO DIFF Differential Comment AUTO DIFF CONFIRMED Platelet Estimate NORMAL Platelet Morphology Comment NORMAL Red Cell Morphology Comment NORMAL Prothrombin Time 10.6 SEC Prothromb Time International Ratio 1.0 RATIO Activated Partial Thromboplast Time 24.8 SEC Blood Urea Nitrogen 18 MG/DL Creatinine 0.87 MG/DL Random Glucose 115 MG/DL Calcium Level 9.2 MG/DL Magnesium Level 2.1 MG/DL Sodium Level 137 MEQ/L Potassium Level 4.5 MEQ/L Chloride Level 103 MEQ/L Carbon Dioxide Level 29.0 MEQ/L Anion Gap 5 MEQ/L Estimat Glomerular Filtration Rate 90 ML/MIN Troponin I 5.25 NG/ML B-Type Natriuretic Peptide 9 PG/ML Lactic Acid Level 1.4 mmol/L MDM Medical Decision Making Medical Screen Exam Complete: Yes Emergency Medical Condition: Yes Interpretation(s) EKG: NSR 73bpm. Normal axis. Q wave III that is deeper than prior. [place] depression lead II. EKG #[address] is [address] elevation shown on the monitor in lead II : NSR 66bpm. [place] depression II. ST elevation in lead II. No reciprocal changes. TWI III. Pt has chest pain only with deep breathing. Do not meet STEMI criteria. Differential Diagnosis CHF vs. ACS vs. Pneumonia vs. pericarditis Narrative Course 61yo M with midsternal chest pain and sob. States chest pain only with deep breathing. Labs reviewed, leukocytosis at 19.1. Lactic acid normal at 1.4. BNP 9. Troponin elevated at 5.25 but pt just had an ablation. Will need to repeat troponin and trend. CXR showed mild bilateral basilar parenchymal opacities. Given the cough and elevated WBC, will treat with ceftriaxone and azithromycin. CT angio showed no pulmonary embolism. Discussed with Dr. Faria and accepted to Dr. Oneil's service. Diagnosis Primary Impression: Pneumonia Qualified Codes: J18.9 - Pneumonia, unspecified organism Additional Impression: Chest pain Qualified Codes: R07.9 - Chest pain, unspecified Admitting Information Admitting Physician Requests: Admit Flor Sousa DO May 29, 2017 00:08
[2017-05-29 00:36] LABS: AUTOMATED NEUTROPHIL # 14.2 TH/MM3 (1.8-7.7); BASOPHIL # 0.1 TH/MM3 (0-0.2); BASOPHIL % 0.3 % (0.0-2.0); EOSINOPHIL % 0.2 % (0.0-4.0); HEMATOCRIT 44.5 % (39.0-51.0); LYMPH % 18.9 % (9.0-44.0); LYMPHOCYTE # 3.6 TH/MM3 (1.0-4.8); MEAN CORPUSCULAR HEMOGLOBIN 30.3 PG (27.0-34.0); MEAN CORPUSCULAR HGB CONC 33.7 % (32.0-36.0); NEUT % 74.6 % (16.0-70.0); PLATELET COUNT 172 TH/MM3 (150-450); RED BLOOD COUNT 4.94 MIL/MM3 (4.50-5.90); WHITE BLOOD COUNT 19.1 TH/MM3 (4.0-11.0)
[2017-05-29 00:43] LABS: HEMO FLAGS AUTO DIFF
[2017-05-29 00:49] LABS: APTT (PATIENT) 24.8 SEC (24.3-30.1); PROTHROMBIN TIME - PATIENT 10.6 SEC (9.8-11.6)
--- NOTE | 2017-05-29 00:52 | RADRPT ---
EXAM DATE/TIME: 05/29/2017 00:16 [facility] COMPARISON: CHEST SINGLE AP, May 31, 2014, 19:17. INDICATIONS : Shortness of breath and chest pain following cardiac ablation on 05-27-2017. MEDICAL HISTORY : A-Fib SURGICAL HISTORY : Cardiac ablation ENCOUNTER: Initial ACUITY: 2 days PAIN SCORE: 6/10 LOCATION: Bilateral chest FINDINGS: There are mild bibasilar parenchymal opacities present. No evidence of effusion. Cardiac contours are satisfactory for technique and projection. CONCLUSION: Mild bilateral basilar parenchymal opacities. Juventino Farnsworth MD on May 29, 2017 at 0:50 Board Certified Radiologist. This report was verified electronically.
[2017-05-29 01:04] LABS: MAGNESIUM 2.1 MG/DL (1.5-2.5)
[2017-05-29 01:15] LABS: POTASSIUM 4.5 MEQ/L (3.5-5.1)
[2017-05-29] MEDS ORDERED: cefTRIAXone INJ 1,000 MG in SODIUM CHLORIDE 0.9% INJ 100 ML IV ONE (01:45)
[2017-05-29] MEDS ORDERED: AZITHROMYCIN 250 MG TAB PO ONE (01:45)
[2017-05-29 01:49] LABS: PLATELET ESTIMATE SMEAR NORMAL (NORMAL); PLATELET MORPHOLOGY NORMAL (NORMAL); SCAN/DIFF AUTO DIFF CONFIRMED
[2017-05-29] MEDS ORDERED: LACTULOSE SYRUP 20 GM/30 ML CUP PO PRN (02:00)
[2017-05-29] MEDS ORDERED: SENNOSIDES 8.6 MG TAB PO PRN (02:00)
[2017-05-29] MEDS ORDERED: SODIUM CHLORIDE 0.9% FLUSH 10 ML FLUSH IV FLUSH PRN (02:00)
[2017-05-29] MEDS ORDERED: NALOXONE HCL 0.4 MG/ML AMP IV PUSH PRN (02:00)
[2017-05-29] MEDS ORDERED: MAGNESIUM HYDROXIDE SUSP 30 ML CUP PO PRN (02:00)
[2017-05-29] MEDS ORDERED: BISACODYL 10 MG SUPP RECTAL PRN (02:00)
[2017-05-29] MEDS ORDERED: ONDANSETRON HCL 4 MG/2 ML VIAL IVP PRN (02:00)
[2017-05-29] MEDS ORDERED: IOHEXOL 350 MG/ML 10 ML VIAL (for RAD DIAG) IVCONTRAST ONE (02:16)
--- NOTE | 2017-05-29 02:27 | RADRPT ---
EXAM DATE/TIME: 05/29/2017 01:59 [facility] COMPARISON: No previous studies available for comparison. INDICATIONS : Shortness of breath and mid-sternal chest pain following cardiac ablation yesterday. IV CONTRAST: 75 cc Omnipaque 350 (iohexol) IV RADIATION DOSE: 18.9 CTDIvol (mGy) MEDICAL HISTORY : Hypertension. A-Fib. SURGICAL HISTORY : Ablation. ENCOUNTER: Initial ACUITY: 1 day PAIN SCALE: 8/10 LOCATION: chest TECHNIQUE: Volumetric scanning of the chest was performed using a pulmonary embolism protocol MIP images were re constructed. Using automated exposure control and adjustment of the mA and/or kV according to patien t size, radiation dose was kept as low as reasonably achievable to obtain optimal diagnostic quality images. DICOM format image data is available electronically for review and comparison. Follow-up recommendations for detected pulmonary nodules are based at a minimum on nodule size and pa tient risk factors according to Fleischner Society Guidelines. FINDINGS: PULMONARY ARTERIES: No filling defects are seen in the pulmonary arteries through the segmental level. LUNGS: Bilateral basilar atelectasis. PLEURAE: There is no pleural thickening or pleural effusion. MEDIASTINUM: There is good visualization of the great vessels of the middle mediastinum. No evidence of mediastin al or hilar adenopathy/mass. MUSCULOSKELETAL: Within normal limits for patient age. MISCELLANEOUS: The visualized upper abdominal organs demonstrate no acute abnormality. CONCLUSION: Bilateral basilar lung atelectasis. No pulmonary embolism. Juventino Farnsworth MD on May 29, 2017 at 2:21 Board Certified Radiologist. This report was verified electronically.
[2017-05-29] MEDS ORDERED: MORPHINE SULFATE 4 MG/ML INJ IV PRN (06:15)
[2017-05-29] MEDS: DOCUSATE SODIUM 50 MG/SENNA 8.6 MG TAB PO SCH ×2 (09:04→21:01)
[2017-05-29] MEDS: APIXABAN 5 MG TABLET PO SCH ×2 (09:04→21:01)
[2017-05-29] MEDS: SODIUM CHLORIDE 0.9% FLUSH 10 ML FLUSH IV FLUSH SCH ×2 (09:05→21:01)
--- NOTE | 2017-05-29 13:12 | HHI.HP ---
HPI Service [facility] Hospitalists Primary Care Physician Falguni Webber MD Admission Diagnosis Pneumonia, chest pain Chief Complaint: Chest pain and SOB Travel History International Travel<30 Days: No Contact w/Intl Traveler <30 Da: No Traveled to Known Affected Are: No History of Present Illness This is a pleasant 61 year old male patient with a past medical history which includes BPH, HTN, hyperlipidemia, depression and Atrial Fibrillation. Patient has recent cardiac ablation for atrial fibrillation 05/27/17. Patient was discharged 05/28/17 returned to the hospital with complaints of chest pain and SOB. Midsternal chest pain worse with deep breathing and laying flat. Chest pain does not radiate. Shortness of breath started 05/28/17 after patient was discharged post ablation. Patient also has nonproductive cough. Patient denies fevers, chills, N/V or abdominal pain. EKG reviewed and reveals diffuse ST segment elevation Review of Systems Constitutional: DENIES: Fatigue, Fever, Chills Eyes: DENIES: Blurred vision, Diplopia, Vision loss Respiratory: COMPLAINS OF: Cough, Shortness of breath, DENIES: Sputum production Cardiovascular: COMPLAINS OF: Chest pain, Dyspnea on Exertion, DENIES: Palpitations, Lower Extremity Edema Gastrointestinal: DENIES: Abdominal pain, Constipation, Diarrhea Neurologic: DENIES: Abnormal gait, Headache, Localized weakness, Speech Problems Psychiatric: DENIES: Anxiety, Confusion, Depression Past Family Social History Past Medical History BPH, HTN, hyperlipidemia, depression, A Fib s/p ablation 05/27/17 Past Surgical History appendectomy, uretal stent, L hand pinky finger surgery, Cardiac A-Fib ablation 05/27/17 Reported Medications Eliquis (Apixaban) 5 Mg Tab 5 Mg PO BID Atorvastatin (Atorvastatin Calcium) 20 Mg Tab 20 Mg PO HS Allergies: Coded Allergies: No Known Allergies (Unverified , 05/28/17) Active Ordered Medications Current Medications Medications (Trade) Dose Ordered Sig/Shayy Route Start Time Stop Time Status Last Admin (NS Flush) 2 ml UNSCH PRN IVF 05/29/17 00:00 Ceftriaxone Sodium 1000 mg/ Sodium Chloride 100 ml @ 200 mls/hr Q24H IV 05/30/17 02:00 (Eliquis) 5 mg BID PO 05/29/17 09:00 05/29/17 09:04 (Lipitor) 20 mg HS PO 05/29/17 21:00 Azithromycin 500 mg/Sodium Chloride 250 ml @ 250 mls/hr Q24H IV 05/30/17 02:00 (NS Flush) 2 ml UNSCH PRN IV FLUSH 05/29/17 02:00 05/29/17 06:13 (NS Flush) 2 ml BID IV FLUSH 05/29/17 09:00 05/29/17 09:05 (Zofran Inj) 4 mg Q6H PRN IVP 05/29/17 02:00 (Narcan Inj) 0.4 mg UNSCH PRN IV PUSH 05/29/17 02:00 (Gayle-Colace) 1 tab BID PO 05/29/17 09:00 05/29/17 09:04 (Milk Of Magnesia Liq) 30 ml Q12H PRN PO 05/29/17 02:00 (Senokot) 17.2 mg Q12H PRN PO 05/29/17 02:00 (Dulcolax Supp) 10 mg DAILY PRN RECTAL 05/29/17 02:00 (Lactulose Liq) 30 ml DAILY PRN PO 05/29/17 02:00 (Morphine Inj) 2 mg Q4H PRN IV 05/29/17 06:15 05/29/17 06:13 Family History Father is in his 60s alive does not known medical history Mother secondary to MVA Brother secondary to CHF Social History ETOH use Tobacco use 1 PPD Physical Exam Vital Signs Vital Signs Date Time Temp Pulse Resp B/P (MAP) Pulse Ox O2 Delivery O2 Flow Rate FiO2 05/29/17 09:22 92 21 05/29/17 05:33 99.1 65 20 106/55 (72) 95 05/29/17 05:16 05/29/17 04:29 95 21 05/29/17 03:38 64 16 109/55 (73) 95 Room Air 05/29/17 00:55 96 Room Air 05/29/17 00:55 96 Room Air 05/28/17 23:52 63 20 114/67 (83) 97 05/28/17 22:26 98.6 80 20 131/71 (91) 94 Room Air Physical Exam GENERAL: This is a well-nourished, well-developed patient, in no apparent distress. SKIN: No rashes, ecchymoses or lesions. Cool and dry. HEAD: Atraumatic. Normocephalic. No temporal or scalp tenderness. EYES: Extraocular motions intact. No scleral icterus. No injection or drainage. ENT: Nose without bleeding, purulent drainage or septal hematoma. Throat without erythema, tonsillar hypertrophy or exudate. Uvula midline. Airway patent. NECK: Trachea midline. No JVD or lymphadenopathy. Supple, nontender, no meningeal signs. CARDIOVASCULAR: Regular rate and rhythm without murmurs, gallops, or rubs. RESPIRATORY: GASTROINTESTINAL: Abdomen soft, non-tender, nondistended. No hepato-splenomegaly , or palpable masses. No guarding. MUSCULOSKELETAL: Extremities without clubbing, cyanosis, or edema. No joint tenderness, effusion, or edema noted. No calf tenderness. Negative Homans sign bilaterally. NEUROLOGICAL: Awake and alert. No focal deficits noted. Motor and sensory grossly within normal limits. Five out of 5 muscle strength in all muscle groups. Normal speech. Laboratory Laboratory Tests Test 05/29/17 00:25 05/29/17 02:00 White Blood Count 19.1 Red Blood Count 4.94 Hemoglobin 15.0 Hematocrit 44.5 Mean Corpuscular Volume 90.0 Mean Corpuscular Hemoglobin 30.3 Mean Corpuscular Hemoglobin Concent 33.7 Red Cell Distribution Width 14.0 Platelet Count 172 Mean Platelet Volume 9.4 Neutrophils (%) (Auto) 74.6 Lymphocytes (%) (Auto) 18.9 Monocytes (%) (Auto) 6.0 Eosinophils (%) (Auto) 0.2 Basophils (%) (Auto) 0.3 Neutrophils # (Auto) 14.2 Lymphocytes # (Auto) 3.6 Monocytes # (Auto) 1.2 Eosinophils # (Auto) 0.0 Basophils # (Auto) 0.1 CBC Comment AUTO DIFF Differential Comment AUTO DIFF CONFIRMED Platelet Estimate NORMAL Platelet Morphology Comment NORMAL Red Cell Morphology Comment NORMAL Prothrombin Time 10.6 Prothromb Time International Ratio 1.0 Activated Partial Thromboplast Time 24.8 Blood Urea Nitrogen 18 Creatinine 0.87 Random Glucose 115 Calcium Level 9.2 Magnesium Level 2.1 Sodium Level 137 Potassium Level 4.5 Chloride Level 103 Carbon Dioxide Level 29.0 Anion Gap 5 Estimat Glomerular Filtration Rate 90 Troponin I 5.25 B-Type Natriuretic Peptide 9 Lactic Acid Level 1.4 Date/Time Source Procedure Growth Status 05/29/17 02:00 Blood Peripheral Aerobic Blood Culture Pending Received 05/29/17 02:00 Blood Peripheral Anaerobic Blood Culture Pending Received Result Diagram: 05/29/17 0025 05/29/17 [address] Angiography 05/29/17 0000 Signed Impressions: Service Date/Time: May 01:59 - CONCLUSION: Bilateral basilar lung atelectasis. No pulmonary embolism. Juventino Farnsworth MD Chest X-Ray 05/28/17 0835 Signed Impressions: Service Date/Time: May 00:16 - CONCLUSION: Mild bilateral basilar parenchymal opacities. Juventino Farnsworth MD Caprini VTE Risk Assessment Caprini VTE Risk Assessment: Mod/High Risk (score >= 2) Caprini Risk Assessment Model Point Value = 1 Point Value = 2 Point Value = 3 Point Value = 5 Age 41-60 Minor surgery BMI > 25 kg/m2 Swollen legs Varicose veins or History of unexplained or recurrent spontaneous Oral contraceptives or hormone replacement Sepsis (< 1 month) Serious lung disease, including pneumonia (< 1 month) Abnormal pulmonary function Acute myocardial infarction Congestive heart failure (< 1 month) History of inflammatory bowel disease Medical patient at bed rest Age 61-74 Arthroscopic surgery Major open surgery (> 45 min) Laparoscopic surgery (> 45 min) Malignancy Confined to bed (> 72 hours) Immobilizing plaster cast Central venous access Age >= 75 History of VTE Family history of VTE Factor V Leiden Prothrombin [id number] Lupus anticoagulant Anticardiolipin antibodies Elevated serum homocysteine Heparin-induced thrombocytopenia Other congenital or acquired thrombophilia Stroke (< 1 month) Elective arthroplasty Hip, pelvis, or leg fracture Acute spinal cord injury (< 1 month) Prophylaxis Regimen Total Risk Factor Score Risk Level Prophylaxis Regimen 0-1 Low Early ambulation 2 Moderate Order ONE of the following: *Sequential Compression Device (SCD) *Heparin 5000 units SQ BID 3-4 Higher Order ONE of the following medications: *Heparin 5000 units SQ TID *Enoxaparin/Lovenox 40 mg SQ daily (WT < 150 kg, CrCl > 30 mL/min) *Enoxaparin/Lovenox 30 mg SQ daily (WT < 150 kg, CrCl > 10-29 mL/min) *Enoxaparin/Lovenox 30 mg SQ BID (WT < 150 kg, CrCl > 30 mL/min) AND/OR *Sequential Compression Device (SCD) 5 or more Highest Order ONE of the following medications: *Heparin 5000 units SQ TID (Preferred with Epidurals) *Enoxaparin/Lovenox 40 mg SQ daily (WT < 150 kg, CrCl > 30 mL/min) *Enoxaparin/Lovenox 30 mg SQ daily (WT < 150 kg, CrCl > 10-29 mL/min) *Enoxaparin/Lovenox 30 mg SQ BID (WT < 150 kg, CrCl > 30 mL/min) AND *Sequential Compression Device (SCD) Assessment and Plan Problem List: (1) Shortness of breath ICD Codes: R06.02 - Shortness of breath Plan: Post procedure endocarditis Patient is S/P atrial fibrillation ablation 05/27/17 returned to ER 05/28/17 with complaints of chest pain and SOB which started after DC. Patient initial troponin 5.25 consistent with resent Ablation EKGs reviewed and reveals diffuse ST segment elevation consistent with post procedure pericarditis Consult Dr. Ellis, discussed with Dr. Ellis start colchicine 0.6 mg BID Continuous telemetry CXR reviewed and reveals mild bilateral basilar parenchymal opacities CTA reviewed and reveals no pulmonary embolism. Bilateral basilar lung atelectasis IS Patient started on IV Rocephin and azithromycin for suspected pna WBC 19.1 will DC abx recheck labs in AM Anticipate DC in 1-2 days Atrial Fibrillation currently in SR S/P Ablation 05/27/17 continue Eliquis Hyperlipidemia continue home medication DVT prophylaxis- patient on Eliquis (2) Chest pain ICD Codes: R07.9 - Chest pain, unspecified Status: Acute (3) Atrial fibrillation ICD Codes: I48.91 - Unspecified atrial fibrillation (4) Hyperlipidemia ICD Codes: E78.5 - Hyperlipidemia, unspecified Assessment and Plan Patient examined. Assessment and plan formulated with Janel ORTIZ I agree with the above. Physician Certification 2 Midnight Certification Type: Admission for Inpatient Services Order for Inpatient Services The services are ordered in accordance with Medicare regulations or non- Medicare payer requirements, as applicable. In the case of services not specified as inpatient-only, they are appropriately provided as inpatient services in accordance with the 2-midnight benchmark. Estimated LOS (days): 2 days is the estimated time the patient will need to remain in the hospital, assuming treatment plan goals are met and no additional complications. Post-Hospital Plan: Home Problem Qualifiers (1) Chest pain: Qualified Codes: R07.9 - Chest pain, unspecified Janel Wyatt May 29, 2017 13:12 Will Oneil DO Jun 01, 2017 00:52
--- NOTE | 2017-05-29 13:59 | EKG ---
Date Performed: 05/28/2017 Time Performed: 22:34:35 PTAGE: 61 years EKG: Sinus rhythm DIFFUSE ST SEGMENT ELEVATION MOST CONSISTENT WITH REPOLARIZATION CHANGE BUT PERICARDITIS AND LESS LI ROBISON MYOCARDIAL INJURY ARE NOT EXCLUDED. CLINICAL CORRELATION WILL BE IMPORTANT. Compared to PREVIOUS TRACING , there has been no significant serial change. PREVIOUS TRACIN 017 05.19 DOCTOR: Sangeeta Martinez Interpretating Date/Time 05/29/2017 13:58:03
--- NOTE | 2017-05-29 14:02 | EKG ---
Date Performed: 05/29/2017 Time Performed: 04:28:07 PTAGE: 61 years EKG: Sinus rhythm DIFFUSE ST ELEVATION, CONSIDER AND EXCLUDE PERICARDITIS. MYOCARDIAL ISCHEMIA OR INJURY SHOULD ALSO B E EXCLUDED ALONG WITH JUST REPOLARIZATION CHANGE. Compared to PREVIOUS TRACING , there has been an increase in the anterolateral ST elevation but no ot her significant serial change. Clinical correlation remains important. PREVIOUS TRACIN05/28/2017 2 2.34 DOCTOR: Sangeeta Martinez Interpretating Date/Time 05/29/2017 14:00:52
[2017-05-29] MEDS ORDERED: ACETAMINOPHEN/HYDROcodone 325 MG/10 MG TAB PO PRN (17:15)
[2017-05-29] MEDS ORDERED: IBUPROFEN 600 MG TAB PO SCH (18:00)
[2017-05-29 18:46] LABS: AUTOMATED NEUTROPHIL # 6.6 TH/MM3 (1.8-7.7); BASOPHIL % 0.3 % (0.0-2.0); EOSINOPHIL # 0.1 TH/MM3 (0-0.4); EOSINOPHIL % 0.6 % (0.0-4.0); HEMATOCRIT 41.7 % (39.0-51.0); HEMO FLAGS DIFF FINAL; LYMPH % 30.5 % (9.0-44.0); LYMPHOCYTE # 3.3 TH/MM3 (1.0-4.8); MEAN CORPUSCULAR HEMOGLOBIN 30.4 PG (27.0-34.0); MEAN CORPUSCULAR HGB CONC 33.4 % (32.0-36.0); MONO % 7.6 % (0.0-8.0); PLATELET COUNT 145 TH/MM3 (150-450); RED BLOOD COUNT 4.58 MIL/MM3 (4.50-5.90); RED CELL DISTRIBUTION WIDTH 14.1 % (11.6-17.2); WHITE BLOOD COUNT 10.9 TH/MM3 (4.0-11.0)
[2017-05-29] MEDS: ACETAMINOPHEN/HYDROcodone 325 MG/5 MG TAB PO PRN (18:54)
[2017-05-29 19:15] LABS: BICARBONATE 27.1 MEQ/L (21.0-32.0); POTASSIUM 4.1 MEQ/L (3.5-5.1)
[2017-05-29] MEDS ORDERED: ATORVASTATIN 20 MG TAB PO SCH (21:00)
[2017-05-29] MEDS: COLCHICINE 0.6 MG TAB PO SCH (21:01)
[2017-05-30] VITALS (7 sets, daily range): BP systolic 100–121; BP diastolic 53–61; PULSE 55–67; RESP 16–18; TEMP 97.9–98.8; O2SAT 92–98
[2017-05-30] MEDS ORDERED: AZITHROMYCIN INJ 500 MG in SODIUM CHLOR 0.9% 250 ML INJ 250 ML IV SCH (02:00)
[2017-05-30] MEDS ORDERED: cefTRIAXone INJ 1,000 MG in SODIUM CHLORIDE 0.9% INJ 100 ML IV SCH (02:00)
[2017-05-30] MEDS: COLCHICINE 0.6 MG TAB PO SCH (08:15)
[2017-05-30] MEDS: APIXABAN 5 MG TABLET PO SCH (08:15)
[2017-05-30] MEDS: DOCUSATE SODIUM 50 MG/SENNA 8.6 MG TAB PO SCH (08:15)
[2017-05-30] MEDS: ACETAMINOPHEN/HYDROcodone 325 MG/5 MG TAB PO PRN (08:16)
[2017-05-30] MEDS: SODIUM CHLORIDE 0.9% FLUSH 10 ML FLUSH IV FLUSH SCH (08:16)
[2017-05-30 08:55] LABS: AUTOMATED NEUTROPHIL # 6.7 TH/MM3 (1.8-7.7); BASOPHIL % 0.3 % (0.0-2.0); EOSINOPHIL # 0.1 TH/MM3 (0-0.4); EOSINOPHIL % 0.9 % (0.0-4.0); HEMATOCRIT 40.4 % (39.0-51.0); HEMO FLAGS DIFF FINAL; LYMPH % 23.6 % (9.0-44.0); LYMPHOCYTE # 2.3 TH/MM3 (1.0-4.8); MEAN CELL VOLUME 90.6 FL (80.0-100.0); MEAN CORPUSCULAR HEMOGLOBIN 30.5 PG (27.0-34.0); MEAN CORPUSCULAR HGB CONC 33.6 % (32.0-36.0); MONO % 6.2 % (0.0-8.0); PLATELET COUNT 129 TH/MM3 (150-450); RED BLOOD COUNT 4.46 MIL/MM3 (4.50-5.90); WHITE BLOOD COUNT 9.7 TH/MM3 (4.0-11.0)
[2017-05-30 09:23] LABS: BICARBONATE 25.3 MEQ/L (21.0-32.0); POTASSIUM 3.9 MEQ/L (3.5-5.1)
--- NOTE | 2017-05-30 15:31 | HHI.PR ---
Subjective Remarks Decreased chest pain. Decreased SOB. Objective Vitals Vital Signs Date Time Temp Pulse Resp B/P (MAP) Pulse Ox O2 Delivery O2 Flow Rate FiO2 05/30/17 13:34 Room Air 05/30/17 12:00 98.8 60 16 121/56 (77) 95 05/30/17 10:30 98 05/30/17 08:03 56 05/30/17 08:00 97.9 60 16 113/59 (77) 95 05/30/17 04:00 97.9 60 18 111/58 (75) 93 05/30/17 00:00 98.3 55 16 100/53 (69) 92 05/29/17 21:55 94 05/29/17 21:11 Room Air 05/29/17 20:00 98.8 65 16 103/55 (71) 95 05/29/17 19:46 64 05/29/17 18:03 20 05/29/17 16:00 100.3 66 20 109/57 (74) 92 05/30/17 05/30/17 05/31/17 15:00 23:00 07:00 Intake Total 960 ml Balance 960 ml Intake Oral 960 ml # Voids 3 # Bowel Movements 1 Result Diagram: 05/30/17 0804 05/30/17 [address] Angiography 05/29/17 0000 Signed Impressions: Service Date/Time: May 01:59 - CONCLUSION: Bilateral basilar lung atelectasis. No pulmonary embolism. Juventino Farnsworth MD Chest X-Ray 05/28/17 2090 Signed Impressions: Service Date/Time: May 00:16 - CONCLUSION: Mild bilateral basilar parenchymal opacities. Juventino Farnsworth MD Objective Remarks GENERAL: This is a well-nourished, well-developed patient, in no apparent distress. CARDIOVASCULAR: Regular rate and rhythm without murmurs, gallops, or rubs. RESPIRATORY: Clear to auscultation. Breath sounds equal bilaterally. No wheezes , rales, or rhonchi. GASTROINTESTINAL: Abdomen soft, non-tender, nondistended. Normal active bowel sounds MUSCULOSKELETAL: Extremities without clubbing, cyanosis, or edema. NEURO: Alert & Oriented x4 to person, place, time, situation. Moves all ext x4 A/P Problem List: (1) Shortness of breath ICD Codes: R06.02 - Shortness of breath Plan: Post procedure endocarditis Patient is S/P atrial fibrillation ablation 05/27/17 returned to ER 05/28/17 with complaints of chest pain and SOB which started after DC. Patient initial troponin 5.25 consistent with resent Ablation EKGs reviewed and reveals diffuse ST segment elevation consistent with post procedure pericarditis - await Cardiology Consult with Dr. Ellis - colchicine 0.6 mg BID Continuous telemetry CXR reviewed and reveals mild bilateral basilar parenchymal opacities CTA reviewed and reveals no pulmonary embolism. Bilateral basilar lung atelectasis IS - WBC normalized - repeat EKG 05/30/17, improved from 05/29, marked improvement of diffuse ST segment elevation - continue cochicine x 4 days - Pt examined at the bedside together with Cardiology, Dr. Ellis - Pt's symptoms have largely resolved - discharge today - see orders - f/u with Dr. Ellis in 3 weeks - continue eliquis (2) Chest pain ICD Codes: R07.9 - Chest pain, unspecified Status: Acute (3) Atrial fibrillation ICD Codes: I48.91 - Unspecified atrial fibrillation Plan: S/P Ablation 05/27/17 continue Eliquis (4) Hyperlipidemia ICD Codes: E78.5 - Hyperlipidemia, unspecified Problem Qualifiers (1) Chest pain: Qualified Codes: R07.9 - Chest pain, unspecified Will Oneil DO May 30, 2017 15:30
[2017-05-30] MEDS ORDERED: COLC1TAB15 PO (15:41)
--- NOTE | 2017-05-30 15:42 | HHI.DCPOC ---
Discharge Care Plan Diagnosis: (1) Pericarditis Goals to Promote Your Health * To prevent worsening of your condition and complications * To maintain your health at the optimal level Directions to Meet Your Goals Take your medications as prescribed Follow your dietary instruction Follow activity as directed Keep your appointments as scheduled Take your immunizations and boosters as scheduled If your symptoms worsen call your PCP, if no PCP go to Urgent Care Center or Emergency Room Smoking is Dangerous to Your Health. Avoid second hand smoke Call the 24-hour hour crisis hotline for domestic abuse at Will Oneil DO May 30, 2017 15:42
--- NOTE | 2017-05-30 16:53 | MB ---
cc: PRISCILLA CENTENO M.D. DATE OF CONSULTATION: 05/30/2017 REASON FOR CONSULTATION: Chest pain, possible pericarditis. HISTORY OF PRESENT ILLNESS: Mr. Cancino is a 61-year-old gentleman with history of atrial fibrillation. He had a previous ablation on May 27 2017. Subsequently the gentleman was discharged home. He was readmitted yesterday due to shortness of breath and chest pain. During hospitalization a ST elevation in all the leads, pericarditis suspected. Colchicine was initiated. The patient's condition significantly improved. The chart was reviewed. The patient was evaluated. ALLERGIES None. SOCIAL HISTORY The gentleman denies smoking and drinking. FAMILY HISTORY Noncontributory to his current medical condition. MEDICATIONS AT HOME 1. He was in the Eliquis. 2. Atorvastatin. 3. During hospitalization Colchicine was added. REVIEW OF SYSTEMS Currently he refers no chest pain or discomfort, shortness of breath significantly improved. No vomiting. No fever. PHYSICAL EXAMINATION: IN GENERAL: Physical exam, Alert, fully oriented. His blood pressure 113/61, pulse 67, respiratory 16. LUNGS: Ventilated. CARDIOVASCULAR SYSTEM: S1-S2, no gallop. ABDOMEN: Soft. No mass. No bruits. EXTREMITIES: No edema. RADIOLOGIC: Electrocardiogram on hospitalization shows sinus rhythm, diffuse ST changes. Electrocardiogram taking minutes ago shows sinus rhythm. The ST changes, basically resolved. ST elevation basically resolved. LABORATORY DATA Hemoglobin 13.6, white blood cell 9.7, potassium 3.9, creatinine 0.58, troponin is high. The patient just had atrial fibrillation ablation is 1.69, on hospitalization was 5.25. INR 1.0. ASSESSMENT AND RECOMMENDATIONS Mr. Cancino condition significantly improved. He is seen in sinus rhythm. No atrial fibrillation. No palpitation. Responds very well to colchicine. At this point he can be discharged home. I will see him at my office as an outpatient. The case was discussed yesterday and today again with Dr. Oneil. MD ANNE Lim/kirill /3:39 PM /4:45 PM
[2017-05-30] MEDS ORDERED: COLCHICINE 0.6 MG TAB PO ONE (17:30)
--- NOTE | 2017-05-30 21:22 | EKG ---
Date Performed: 05/30/2017 Time Performed: 15:15:34 PTAGE: 61 years EKG: CONSIDER ACUTE ST ELEVATION NE Sinus rhythm . rSr'(V1) - probable normal variant Inferior ST elevation, CONSIDER ACUTE INFARCT Abnormal ECG Abdirashid red to prior electrocardiogram, Mild inferior and anterolateral ST elevation has improved. PREVIOUS TRACING : 05/29/2017 04.28 DOCTOR: Jorge Luis Sargent Interpretating Date/Time 05/30/2017 21:21:53
== END 2017-05-30 18:16 | disposition home or self-care (01) | DRG 306 ==
LOC: NEPC 22:20 → NEDA 05-29 02:37 → N04B 05-29 05:02
PROVIDERS: ADMIT Hospitalist; ATTEND Hospitalist
DX: I38 Endocarditis, valve unspecified (principal); J18.9 Pneumonia, unspecified organism; I31.9 Disease of pericardium, unspecified; I11.9 Hypertensive heart disease without heart failure; I48.91 Unspecified atrial fibrillation; J98.11 Atelectasis; E78.5 Hyperlipidemia, unspecified; N40.0 Benign prostatic hyperplasia without lower urinary tract symptoms; F17.210 Nicotine dependence, cigarettes, uncomplicated; I45.4 Nonspecific intraventricular block; I34.0 Nonrheumatic mitral (valve) insufficiency; I49.3 Ventricular premature depolarization; Z79.01 Long term (current) use of anticoagulants
CPT/HCPCS: 71010; 71275; 80048; 83605; 83735; 83880; 84484; 85002; 85025; 85610; 85730; 86850; 86900; 86901; 87040; 93005; 93613; 93623; 93656; 93662; 94150; 96365; C1730; C1731; C1732; C1759; C1766; C2630; J0696; J1100; J1644; J1940; J1956; J2270; J2405; J2550; J2720; J3010; Q9967